=== PATIENT | male | born 1995 | race Caucasian/White ===

== ENCOUNTER 2019-05-06 23:20 | Emergency (ER) | payer MEDICAID ==
[~2019-05-06] VITALS: Ht 185.4 cm; Wt 99.8 kg
[2019-05-06 23:50] VITALS: BP 136/74
[2019-05-07] MEDS ORDERED: IBUPROFEN 800 MG TAB PO ONE (02:45)
[2019-05-07 03:40] VITALS: BP 132/78
== END 2019-05-07 03:40 | disposition home or self-care (01) ==
LOC: MED 23:20
DX: R09.1 Pleurisy (principal)
CPT/HCPCS: 71045; 93005; 99283; Q0092

== ENCOUNTER 2022-06-16 15:16 | Emergency (ER) | payer MEDICAID ==
[~2022-06-16] VITALS: Ht 185.4 cm; Wt 104.3 kg
[2022-06-16 15:23] VITALS: BP 117/84
--- NOTE | 2022-06-16 15:23 | NUR ---
26 y/o male, c/o sharp chest pain, headache (sore), nausea and fatigue that started yesterday. pt states he had a tooth extracted 1 mo ago and is concerned he has an infection in his bloodstream. skin is pink/warm/dry. a&o x4 with even and steady gait. lungs clear bl, heart rate even and regular. pmh: denies nka med: denies
[2022-06-16] MEDS ORDERED: ONDANSETRON 4 MG ODT PO ONE (16:05)
[2022-06-16] MEDS ORDERED: AMOXIL/CLAVULANATE 875/125 MG 1 TAB PO ONE (16:05)
[2022-06-16] MEDS ORDERED: AMOX-1230 PO (16:06)
[2022-06-16] MEDS ORDERED: ONDA-188 SL (16:06)
--- NOTE | 2022-06-16 16:26 | NUR ---
pt refused zofran after opening medication, waste charted
[2022-06-16 16:56] VITALS: BP 117/84
--- NOTE | 2022-06-16 16:57 | NUR ---
Patient discharged with v/s stable. Written and verbal after care instructions given and explained. Patient alert, oriented and verbalized understanding of instructions. Ambulatory with steady gait. All questions addressed prior to discharge. ID band removed. Patient advised to follow up with PMD. Rx of zofran, amox-clav (script) given. Patient educated on indication of medication including possible reaction and side effects. Opportunity to ask questions provided and answered. work note given
== END 2022-06-16 16:57 | disposition home or self-care (01) ==
LOC: MED 15:16
DX: K04.7 Periapical abscess without sinus (principal)
CPT/HCPCS: 93005; 99283; Q0162